=== PATIENT | male | born 1970 | race Caucasian/White ===

== ENCOUNTER → 2018-07-18 | Outpatient (CLI) | payer BC ==
--- NOTE | 2018-07-18 15:47 | XR ---
Left shoulder HISTORY: Shoulder pain 3 views of the left shoulder Hypertrophic changes are present at the acromioclavicular joint. No fracture or dislocation. Bone min eralization and alignment are maintained. Left lung apex as visualized is normal. IMPRESSION: Acromioclavicular joint arthropathy.
--- NOTE | 2018-07-18 15:48 | XR ---
Thoracic spine HISTORY: Pain 3 views of the thoracic spine Thoracic vertebral bodies show preserved height, alignment, and bone mineralization. Multilevel spond ylosis. Some loss of disc height and mid to lower intervertebral levels noted. IMPRESSION: Degenerative disc disease.
== END | disposition home or self-care (01) ==
LOC: RADXRYALE 15:14
PROVIDERS: ATTEND Internal Medicine
DX: M19.012 Primary osteoarthritis, left shoulder (principal); M51.34 Other intervertebral disc degeneration, thoracic region
CPT/HCPCS: 72072